=== PATIENT | female | born 1970 | race African-American/Black ===

== ENCOUNTER 2019-04-05 12:05 | Emergency (ER) | payer OTHER ==
[~2019-04-05] VITALS: Ht 162.6 cm; Wt 72.6 kg
--- NOTE | 2019-04-05 12:14 | NUR ---
ED Nurse Note: PT BIBA FROM HER DOCTOR'S CLINIC DUE TO SEVERE HEADACHE MORE PRONOUNCED ON RIGHT FOREHEAD X 1 HOUR AGO. PT FEELS NAUSEATED BUT NO VOMITING. PT HAS HX OF MIGRAINES AND TOOK IBUPROFEN 400MG BUT DID NOT WORK. AAO X4, AMBULATORY WITH NON LABORED BREATHING. VSS.
[2019-04-05 12:17] VITALS: BP 144/100
--- NOTE | 2019-04-05 13:16 | NUR ---
ED Nurse Note: PT IS MORE RELAXED AT THIS TIME WITH LESSER PAIN. WARM BLANKETS PROVIDED.
[2019-04-05] MEDS ORDERED: FIORICET1 EA ORAL (14:11)
--- NOTE | 2019-04-05 14:11 | Emergency Room Report ---
History of Present Illness General Chief Complaint: Headache Source: Patient, EMS Present Illness HPI 48-year-old female presents to the emergency department brought by ambulance complaining of 10 out of 10 severity progressive onset migraine headache x1 hour. Patient reports she was at her therapist's office and when she went to the bathroom she began having her visual aura where she typically begins to see spots and a progressive headache shortly after. Patient reports history of migraines she states that the headache she is experiencing today is consistent in nature and character to migraines that she has experienced in the past. Patient reports she is being seen by neurologist and is looking for alternative therapies such as Botox because at the moment she only has medication which causes her to be drowsy and she does not take it regularly due to that side effect. Patient denies fevers or chills, neck pain or stiffness she denies vomiting, recent travel or ill contacts. Patient denies recent head trauma she denies dizziness, imbalance, difficulty with speech, weakness or paresthesias. Patient denies sudden onset/thunderclap headache. Her visual changes have resolved at this time. Allergies: Coded Allergies: No Known Allergies (Unverified , 04/05/19) Patient History Past Medical History: see triage record, migraines Past Surgical History: none Pertinent Family History: none Last Menstrual Period: 03/27/19 Now: No Immunizations: UTD Reviewed Nursing Documentation: PMH: Agreed; PSxH: Agreed Nursing Documentation-PMH Past Medical History: No History, Except For Review of Systems All Other Systems: negative except mentioned in HPI Physical Exam Vital Signs Date Time Temp Pulse Resp B/P (MAP) Pulse Ox O2 Delivery O2 Flow Rate FiO2 04/05/19 11:58 98.2 60 18 142/87 (105) 98 Room Air Sp02 EP Interpretation: reviewed, normal General Appearance: alert, GCS 15, non-toxic, moderate distress Head: normocephalic, atraumatic Eyes: bilateral eye normal inspection, bilateral eye PERRL, bilateral eye photophobia ENT: hearing grossly normal, normal voice Neck: full range of motion, no meningismus Respiratory: chest non-tender, lungs clear, normal breath sounds, speaking full sentences Cardiovascular #1: regular rate, rhythm Genitourinary: no CVA tenderness Musculoskeletal: back normal, gait/station normal, normal range of motion, non- tender Neurologic: alert, oriented x3, responsive, motor strength/tone normal, sensory intact, normal gait, speech normal, no pronator, other - no facial droop , equal out of town collection clerk strength, no nystagmus, EOMI, normal finger to nose. , grossly normal Psychiatric: judgement/insight normal Skin: no rash Medical Decision Making PA Attestation Dr. Martell is my supervising Physician whom patient management has been discussed with. Diagnostic Impression: Primary Impression: Migraine Qualified Codes: G43.101 - Migraine with aura, not intractable, with status migrainosus ER Course 48-year-old female presents to the emergency department brought by ambulance complaining of 10 out of 10 severity progressive onset migraine headache x1 hour. Patient reports she was at her therapist's office and when she went to the bathroom she began having her visual aura where she typically begins to see spots and a progressive headache shortly after. Patient reports history of migraines she states that the headache she is experiencing today is consistent in nature and character to migraines that she has experienced in the past. Patient reports she is being seen by neurologist and is looking for alternative therapies such as Botox because at the moment she only has medication which causes her to be drowsy and she does not take it regularly due to that side effect. Patient denies fevers or chills, neck pain or stiffness she denies vomiting, recent travel or ill contacts. Patient denies recent head trauma she denies dizziness, imbalance, difficulty with speech, weakness or paresthesias. Patient denies sudden onset/thunderclap headache. Her visual changes have resolved at this time. Ddx considered but are not limited to migraine, SAH, Pseudomotor Cerebri, Mass lesion, Cluster GÓMEZ, Tension GÓMEZ, Post lumbar puncture GÓMEZ. Vital signs: are WNL, pt. is afebrile H&PE are most consistent with migraine headache--patient describes having an aura, progressive onset, on physical exam there are no focal neurological deficits. ORDERS: None at this time the diagnosis is clinical and no changes in character to previously experienced migraines. ED INTERVENTIONS: -Reglan 10mg PO -Fioricet PO -Benadryl PO --Upon reassessment pt. reports her GÓMEZ has completely resolved. DISCHARGE: At this time pt. is stable for d/c to home. Will provide printed patient care instructions, and any necessary prescriptions. Care plan and follow up instructions have been discussed with the patient prior to discharge. Last Vital Signs Date Time Temp Pulse Resp B/P (MAP) Pulse Ox O2 Delivery O2 Flow Rate FiO2 04/05/19 13:24 98.2 04/05/19 12:17 62 15 144/100 99 Room Air Status: improved Disposition: HOME, SELF-CARE Condition: Stable Scripts Acetamin/Butalbital/Caffeine* (FIORICET*) 1 Ea Tab 1 TAB ORAL Q6H, #15 TAB 0 Refills Prov: Raquel Sherman 04/05/19 Patient Instructions: Migraine Headache Additional Instructions: Take medications as directed. Follow up with a Primary Care Provider in 3-5 days For a referral to have NEUROLOGIST Evaluation, even if your symptoms have resolved. Evaluation for candidacy for alternative migraine treatments such as botox injections. Return sooner to ED if new symptoms occur, or current symptoms become worse. - Please note that this Emergency Department Report was dictated using [employer] software, occasionally this can lead to erroneous entry secondary to interpretation by the dictation equipment. Raquel Sherman Apr 05, 2019 14:11
[2019-04-05 14:20] VITALS: BP 133/78
--- NOTE | 2019-04-05 14:20 | NUR ---
ER DISCHARGE NOTE: Patient is cleared to be discharged per PA, pt is aox4, on room air, with stable vital signs. pt was given dc and prescription instructions, pt was able to verbalize understanding, pt id band removed without complications. pt is able to ambulate with steady gait. pt took all belongings.
== END 2019-04-05 14:20 | disposition home or self-care (01) ==
LOC: EDBD 12:05 → EMR 13:50
DX: G43.101 Migraine with aura, not intractable, with status migrainosus (principal)
CPT/HCPCS: 99283

== ENCOUNTER 2019-04-07 13:35 | Emergency (ER) | payer OTHER ==
[~2019-04-07] VITALS: Ht 162.6 cm; Wt 68.0 kg
[~2019-04-07 13:35] MED LIST: FIORICET1 EA ORAL
[2019-04-07] MEDS ORDERED: DiphenhydrAMINE 50mg/ml Inj IVP ONE (13:45)
[2019-04-07] MEDS ORDERED: Dexamethasone 20mg/5ml IVP ONE (13:45)
--- NOTE | 2019-04-07 13:45 | Emergency Room Report ---
History of Present Illness General Chief Complaint: Headache Source: EMS Present Illness HPI 48-year-old female history of migraines, presents with headache, right-sided, sharp in nature, similar to previous headaches, patient states her vision started getting blurry, she denies any chest pain shortness of breath, she endorsed some nausea, she felt like her vision was narrowing she denies any aggravating or alleviating factors, she was driving her car, she states it was gradual in onset not sudden, no thunderclap features. Allergies: Coded Allergies: No Known Allergies (Unverified , 04/05/19) Patient History Past Medical History: see triage record Last Menstrual Period: 03/27/2019 Reviewed Nursing Documentation: PMH: Agreed; PSxH: Agreed Review of Systems Constitutional: Denies: chills, fever Eye: Reports: blurred vision; Denies: double vision ENT: Denies: throat pain, nasal discharge Respiratory: Denies: cough, shortness of breath Cardiovascular: Denies: chest pain, palpitations Gastrointestinal: Reports: nausea; Denies: abdominal pain, diarrhea, vomiting Genitourinary: Denies: dysuria, pain Musculoskeletal: Denies: back pain, muscle pain Skin: Denies: rash, lesions Neurological: Reports: headache; Denies: focal weakness Hematologic/Lymphatic: Denies: easy bleeding, easy bruising All Other Systems: negative except mentioned in HPI Physical Exam Vital Signs Date Time Temp Pulse Resp B/P (MAP) Pulse Ox O2 Delivery O2 Flow Rate FiO2 04/07/19 13:33 98.8 90 18 130/90 (103) 98 Room Air Sp02 EP Interpretation: reviewed, normal General Appearance: well appearing, no apparent distress, alert Head: normocephalic, atraumatic Eyes: bilateral eye PERRL, bilateral eye EOMI ENT: uvula midline, moist mucus membranes Neck: supple, thyroid normal, supple/symm/no masses Respiratory: lungs clear, no respiratory distress, no retraction, no accessory muscle use Cardiovascular #1: normal peripheral pulses, regular rate, rhythm, no edema, no gallop, no murmur Gastrointestinal: non tender, soft, no guarding, no rebound Musculoskeletal: normal inspection Neurologic: alert, oriented x3, recapper III-XII nml as tested, motor strength/tone normal, sensory intact, normal gait, speech normal, other - Renal nerves II through XII intact, sensation grossly intact, negative Romberg, negative finger- to-nose visual joyner grossly intact Psychiatric: mood/affect normal Skin: no rash, warm/dry Medical Decision Making Diagnostic Impression: Primary Impression: Headache Additional Impression: Migraine ER Course Patient with a headache, no high risk features, similar to previous headaches, will provide migraine cocktail reassess. Based on the patient's history and physical there is very low clinical suspicion for significant intracranial pathology. There are no red flags of GÓMEZ, not sudden in onset, not maximal in onset, no acute neurological findings, no fever with head stiffness. History of headaches yes Low suspicion for subarachnoid hemorrhage, encephalitis, meningitis. reevaluation at 3:05 PM, headache completely resolved, will disposition patient home with return precautions Last Vital Signs Date Time Temp Pulse Resp B/P (MAP) Pulse Ox O2 Delivery O2 Flow Rate FiO2 04/07/19 13:33 98.8 90 18 130/90 (103) 98 Room Air Disposition: HOME, SELF-CARE Condition: Improved Scripts Riboflavin (RIBOFLAVIN) 100 Mg Tablet 100 MG PO DAILY, #30 TAB Prov: Moustapha Rabago M.D. 04/07/19 Patient Instructions: Migraine Headache, General Headache Without Cause Additional Instructions: The patient was provided with discharge instructions, notified to follow-up with a primary care doctor and or specialist in the next 24-48 hours, and to return to the ED if they have worsening of their symptoms. Please note that this report is being documented using [employer] technology. This can lead to erroneous entry secondary to incorrect interpretation by the dictating instrument. Moustapha Rabago M.D. Apr 07, 2019 13:45
[2019-04-07 14:59] VITALS: BP 130/90
--- NOTE | 2019-04-07 15:00 | NUR ---
ED Nurse Note:pt. received IV meds and fluids, blood sent to labs
[2019-04-07] MEDS ORDERED: RIBOFLAVIN100 MG PO (15:06)
--- NOTE | 2019-04-07 15:20 | NUR ---
ER DISCHARGE NOTE: Patient is cleared to be discharged per ERMD, pt is aox4, on room air, with stable vital signs. pt was given dc and prescription instructions, pt was able to verbalize understanding, pt id band and iv site removed without complications. pt is able to ambulate with steady gait. pt took all belongings.
[2019-04-07 16:00] VITALS: BP 130/90
== END 2019-04-07 15:20 | disposition home or self-care (01) ==
LOC: EDBD 13:35 → EMR 14:33
DX: G43.909 Migraine, unspecified, not intractable, without status migrainosus (principal); R51 Headache; R11.0 Nausea
CPT/HCPCS: 81025; 96365; 96375; 99284; J0780; J1100; J1200; J7040